=== PATIENT | male | born 1970 | race Caucasian/White ===

== ENCOUNTER 2020-02-19 19:18 | Emergency (ER) | payer OTHER, SELFPAY ==
--- NOTE | ~2020-02-19 | CT_ITS ---
EXAMINATION: CT abdomen pelvis wo con DATE: 02/19/2020 20:56 INDICATION: Left flank pain. TECHNIQUE: Computed tomography (CT) of the abdomen and pelvis was performed without intravenous contr ast. Automated exposure control and iterative reconstruction technique were employed. The dose-length product was 306.47 mGy-cm. COMPARISON: CT abdomen and pelvis 09/25/2012 FINDINGS: The visualized portions of the lung bases demonstrates mild atelectasis. No pleural effusio n. The heart size is normal. No pericardial effusion. There are cysts in the liver measuring up to 3. 0 cm. The gallbladder, spleen, pancreas, adrenal glands, and right kidney are normal. There is mild l eft hydronephrosis. There is a 2 mm stone in proximal left ureter. The prostate is mildly enlarged. T here are no dilated loops of bowel. The appendix is normal. There are no pathologically enlarged lymp h nodes. There is no free intraperitoneal fluid. There is mild thoracolumbar spondylosis. IMPRESSION: 1. 2 mm stone in proximal left ureter with mild left hydronephrosis. Reviewed, dictated and finalized at location A.
[2020-02-19 19:19] VITALS: BP 112/81; PULSE 62; RESP 16; TEMP 36; O2SAT 100
[2020-02-19 19:34] VITALS: RESP 18
--- NOTE | 2020-02-19 20:07 | ED.ABDPAIN ---
HPI - Abdominal Pain General Chief Complaint: Abdominal Pain Stated Complaint: kidney stone Time Seen by Provider: 02/19/20 19:58 Source: patient and family Mode of arrival: ambulatory History of Present Illness HPI narrative: 49 years old white male presents with left flank pain started around noon today associated with nausea and frequent vomiting. Patient denies radiation of pain. Patient had similar symptoms secondary to kidney stone. Patient denies any fever, chills, urinary symptoms. Related Data Allergies Allergy/AdvReac Type Severity Reaction Status Date / Time No Known Drug Allergies Allergy Verified 10/25/12 13:55 Review of Systems Review of Systems: Narrative: CONSTITUTIONAL: Denies fever, chills, or sweats. EYES: Denies visual changes, redness, or discharge. ENT: Denies rhinorrhea, congestion, sore throat, or otalgia. CARDIOVASCULAR: Denies chest pain, palpitations, or edema. RESPIRATORY: Denies cough or dyspnea. GASTROINTESTINAL: Denies abdominal pain, nausea, vomiting, or diarrhea. GENITOURINARY: Denies dysuria or hematuria. SKIN: Denies rash or itching. MUSCULOSKELETAL: Denies back pain, joint pain, or myalgia. NEUROLOGIC: Denies headache, numbness, or weakness. PSYCHIATRIC: Denies anxiety or depression. [facility] Family History Family History Mother Family history of diabetes mellitus in first degree relative Family history of type 2 diabetes mellitus Sibling Family history of thyroid disease Father Malignant neoplasm of prostate Social History Social History Smoking status: Never smoker Alcohol intake: current Gender identity (if verbalized by the patient): Male Exam Narrative: Exam Narrative: General appearance: Well-developed, well-nourished Skin: Normal color Head: Normocephalic, nontraumatic Eyes: Clear conjunctiva ENT: Oropharynx normal, ears normal, nose normal Neck: Supple, nontender Chest and respiratory: Airway patent, no respiratory distress, no accessory muscle use Heart: Regular rate/rhythm Abdomen: Soft, mild tenderness left flank , no organomegaly, quiet bowel sounds Vascular: Normal peripheral pulses, normal capillary refill. Musculoskeletal: Normal range of motion, nontender back Neurologic: Alert and oriented ?3, [employer] is normal as tested, no gross motor deficit Course Course Emergency Course: Improving Vital Signs Vital signs: Vital Signs Temperature 36.0 C L 02/19/20 19:19 Pulse Rate 62 02/19/20 19:19 Respiratory Rate 16 02/19/20 19:19 Blood Pressure 112/81 02/19/20 19:19 Pulse Oximetry 100 02/19/20 19:19 Temperature 36.0 C L 02/19/20 19:19 Pulse Rate 62 02/19/20 19:19 Respiratory Rate 18 02/19/20 19:34 Blood Pressure 112/81 02/19/20 19:19 Pulse Oximetry 100 02/19/20 19:19 MDM - Abdominal Pain MDM Narrative Medical decision making narrative: Kidney stone is my concern. Labs, UA, CT abdomen and pelvis to rule out kidney stone ordered. Further plan to follow Differential Diagnosis Differential diagnosis: Likely calculus of kidney and other (Pyelonephritis, constipation) Imaging Data Radiologist's impression: ITS Impressions Abdomen/Pelvis CT 02/19/20 21:01 IMPRESSION: 1. 2 mm stone in proximal left ureter with mild left hydronephrosis. Critical Care Time Critical Care Time Critical Care Time: No Discharge Plan Discharge Clinical Impression: Kidney stone Patient Disposition: Home, Self-Care Condition: Improved Instructions: Kidney Stones (ED) Additional Instructions: Return if symptoms are worsening , call your
--- NOTE | 2020-02-19 20:36 | PC.NURSE ---
Attempted to draw labs but patient stated he would like to leave. Nurse and MD notified at this time.
--- NOTE | 2020-02-19 21:10 | PC.NURSE ---
pt refused all meds, stated he just wants ct to know size. notified.
[2020-02-19 21:29] VITALS: BP 114/68; PULSE 64; RESP 18; TEMP 36.6; O2SAT 98
== END 2020-02-19 21:30 | disposition home or self-care (01) ==
PROVIDERS: Emergency Provider Emergency Medicine; PCP Internal Medicine Endocrinology, Diabetes & Metabolism
DX: N13.2 Hydronephrosis with renal and ureteral calculous obstruction (principal)
CPT/HCPCS: 74176; 99284

== ENCOUNTER 2025-01-31 19:00 | Emergency (ER) | payer BC, SELFPAY ==
[2025-01-31] VITALS (20 sets, daily range): BP systolic 128–156; BP diastolic 77–100; PULSE 64–71; RESP 15–21; TEMP 36.4–36.5; O2SAT 95–98
--- NOTE | ~2025-01-31 | XR_ITS ---
CHEST RADIOGRAPH, PA AND LATERAL CLINICAL HISTORY: CP . COMPARISON: 10/25/2013 TECHNIQUE: PA and lateral views of the chest. FINDINGS The cardiomediastinal silhouette is unremarkable. Increased interstitial markings are identified bilaterally, findings suggesting mild pulmonary vascul ar congestion. Two irregular nodules are suspected within the left upper lobe, not present on the 2013 examination f or which cross-sectional imaging (noncontrast enhanced CT examination of the chest) is recommended fo r further evaluation. Hazy opacification of the superior segment of the right lower lobe, possibly an early infiltrate. The remainder of the lungs are clear. IMPRESSION: Mild pulmonary vascular congestion, with a possible early infiltrate in the superior segment of the r ight lower lobe. Interval development of two irregular subcentimeter nodules projecting over the left upper lobe for w hich cross-sectional imaging (noncontrast enhanced CT examination of the chest) is recommended for fu rther evaluation. Reviewed, dictated and finalized at location A. IMPRESSION: Mild pulmonary vascular congestion, with a possible early infiltrate in the sup erior segment of the right lower lobe. Interval development of two irregular subcentimeter nodules projecting over the left upper lobe for which cross-sectional imaging (noncontrast enhanced CT exa mination of the chest) is recommended for further evaluation.
--- NOTE | ~2025-01-31 | CT_ITS ---
CLINICAL INDICATION: Abnormal chest x-ray COMPARISON: Radiographic evaluation of the chest performed approximately 90 minutes earlier. TECHNIQUE: Multiple contiguous axial images of the chest was performed without the administration of intravenous contrast. This CT examination was performed utilizing dose reduction techniques. DLP: mGy-cm FINDINGS/OBSERVATIONS: LUNG: The irregular subcentimeter nodule projecting over the left upper lobe on chest radiograph actually c orresponds to a bone island within the posterior left fourth rib. Trace bibasilar atelectasis. Within the superior segment of the right lower lobe are areas of dense consolidation with air broncho grams consistent with a focal infiltrate, corresponding to today's chest radiograph. Small right-sided pleural effusion is also noted. The lungs are otherwise clear. HEART: The heart is within the upper limits of normal for size, without pericardial effusion. MEDIASTINUM: No pathologically enlarged or morphologically suspicious lymph nodes are identified within the medias tinum, bilateral axilla, within the soft tissues of the anterior chest wall. SOFT TISSUES OF THE CHEST: Unremarkable. BONES OF THE CHEST: No acute fracture. No lytic or blastic lesions are identified. IMPRESSION: Infiltrate within the superior segment of the right lower lobe. Trace bibasilar atelectasis. Small right-sided pleural effusion. The remainder of the lungs are clear. Reviewed, dictated and finalized at location A.
--- NOTE | 2025-01-31 19:16 | ECG_ITS ---
Test Date: 2025-01-31 19:58:47 Measurements Intervals [place] Rate: 68 P: -15 LA: 184 QRS: 4 QRSD: 96 T: -7 QT: 387 QTc: 414 Interpretive Statements SINUS RHYTHM No previous ECG available for comparison Electronically Signed On 02-01-2025 17:09:13 CDT by Steve Winston M.D.
--- NOTE | 2025-01-31 20:04 | PC.NURSE ---
Patient taken to Xray at this time, via w/c.
--- OUTSIDE RECORDS SUMMARY | 2025-01-31 20:17 | XMS_ITS | Clinical Summary ---
Author Organization [email or web address] Address [address] [place] [address] Care Team Providers Care Fruit And Vegetable Inspector Name Role Phone Unknown, Provider Primary Care Provider Unavaila ble Source Comments [email or web address],non-owned Affiliates and Associated Physician Practices is amultiple site organization consisting of ambulatory clinics and hospital sitesin [place], [place], [place] and [place]. This disclosure is being madepursuant to the Care Everywhere program and may not contain all information available regarding this patient. Last updated 18.[email or web address] Allergies No known active allergies Medications * Be aware that medications may not be up to date on this document. Alwaysverify current medications with the patient. Omeprazole 20 MG TBDD Active Active Problems No known active problems Family History Relation Name Status Comments Brother 1 Alive Brother 2 Alive Father Alive Mother Alive Sister Alive Social History Tobacco Use Types Packs/Day Years Used Date Smoking Tobacco: Never Smokeless Tobacco: Never Alcohol Use Standard Drinks/Week Comments Yes 0 (1 standard drink = 0.6 oz pur e alcohol) Sex and Gender Information Value Date Recorded Sex Assigned at Not on file Legal Sex Male 10:37 AM [employer] Gender Identity Not on file Sexual Orientation Not on file Last Filed Vital Signs Vital Sign Reading Time Taken Comments Blood Pressure 102/70 11/09/2018 11:49 AM [employer] Pulse 96 11/09/2018 11:49 AM [employer] Temperature 36.7 C (98 F) 11/09/2018 11:49 AM [employer] Respiratory Rate 16 11/09/2018 11:49 AM MALTED [employer] Oxygen Saturation 98% 11/09/2018 11:49 AM [employer] Inhaled Oxygen Concentration - - Weight 90.7 kg (200 lb) 11/09/2018 11:49 AM [employer] Height 182.9 cm (6') 11/09/2018 11:49 AM [employer] Body Mass Index 27.12 11/09/2018 11:49 AM MALTED [employer] M[employer] Plan of Treatment Health Maintenance Due Date Last Done Comments COLOGUARD (AGES 45-75) - COL ON CA SCREENING 1969 COLON MONITORING 1969 COLONOSCOPY - COLON CA SCREENING 1969 CT COLONOGRAPHY - COLON CA SCREENING 1969 Colorectal Cancer Screening 1969 FIT - COLON CA SCREENING 1969 FLEX SIG - COLON CA SCREENING 1969 LIPID TESTING 1969 HIV SCREENING 1984 HEPATITIS C SCREENING 12/12/1987 DTAP/TDAP/TD VACCINES (1 - Tdap) 1988 HEPATITIS B VACCINE (1 of 3 - 19+ 3-dose series) 1988 SCREENING FOR DIABETES 09/12/2018 PNEUMOCOCCAL VACCINE 50+ (1 of 1 - PCV) 12/17/2019 ZOSTER VACCINE (1 of 2) 12/17/2019 COVID-19 VACCINE (1 - 2023-2 5 season) 2024 DEPRESSION SCREENING 09/11/2024 INFLUENZA VACCINE (Season Ended) 2025 HIB VACCINE Aged Out No longer eligi ble based on patient's age to complete this topic HPV VACCINE Aged Out No longer eligi ble based on patient's age to complete this topic MENINGOCOCCAL (Group B) VACC INE SHARED DECISION-MAKING Aged Out No longer eligibl e based on patient's age to complete this topic MENINGOCOCCAL GROUPS A/C/Y/W VACCINE Aged Out No longer eligible b ased on patient's age to complete [place] [id number] [facility] [place] [id number] Care Teams Fruit And Vegetable Inspector Relationship Specialty Start Date End Date Unknown, Provider PCP - General 07/29/16
[2025-01-31 20:26] LABS: Basophils Percent Auto 0.5 % (0.2-1.2); Eosinophils Absolute Auto 0.1 K/mm3 (0-0.3); Eosinophils Percent Auto 1.7 % (0-4.4); Hematocrit 45.1 % (42.0-52.0); Hemoglobin 15.6 g/dL (14.0-18.0); Immature Granulocyte Absolute 0.02 K/mm3 (0.00-0.031); Immature Granulocyte Percent A 0.2 % (0-0.5); Lymphocytes Absolute Auto 1.15 K/mm3 (0.9-3.2); Lymphocytes Percent Auto 14.2 % (18.3-44.2); Mean Corpuscular HGB Conc 34.6 g/dl (32-36); Mean Corpuscular Hemoglobin 30.2 pg (26-34); Mean Corpuscular Volume 87.2 fl (80-100); Mean Platelet Volume 9.5 fl (7.4-10.4); Monocytes Absolute Auto 0.6 K/mm3 (0.1-0.6); Monocytes Percent Auto 7.9 % (2.6-8.5); Neutrophils Absolute Auto 6.1 K/mm3 (1.3-6.7); Neutrophils Percent Auto 75.5 % (45.5-73.1); Platelet Count Result 154 k/mm3 (150-375); Red Blood Count 5.17 M/mm3 (4.6-6.20); Red Cell Distribution Width 12.3 % (11.5-14.5); White Blood Count 8.1 K/mm3 (4.5-10.0)
--- NOTE | 2025-01-31 20:28 | ED_ITS ---
HPI - Chest Pain General Chief Complaint: Shortness of Breath/Dyspnea Stated Complaint: Right side pain-diff breathing for several days Time Seen by Provider: 01/31/25 19:55 Source: patient Mode of arrival: ambulatory Limitations: no limitations History of Present Illness HPI narrative: This is a 54 year old male that presents to the ER for right sided chest pain. Ongoing intermittently for the last couple of days. Reports pain with inspiration. Denies fever, cough, abdominal pain, vomiting. Related Data Allergies Allergy/AdvReac Type Severity Reaction Status Date / Time No Known Allergies Allergy Verified 01/31/25 19:02 Review of Systems 2 Review of Systems: CONSTITUTIONAL: Denies fever CARDIOVASCULAR: Reports chest pain,. Denies edema. RESPIRATORY: Reports dyspnea. Denies cough All systems reviewed & are unremarkable except as noted in HPI and below PMFSH Family History Family History Mother Family history of diabetes mellitus in first degree relative Family history of type 2 diabetes mellitus Sibling Family history of thyroid disease Father Malignant neoplasm of prostate Social History Social History Smoking status: Never smoker Alcohol intake: current Gender identity (if verbalized by the patient): Male Exam 2 Narrative: GENERAL: Well-appearing, well-nourished, and in no acute distress. HEAD: Normocephalic, atraumatic. EYES: EOMI. ENT: Nares clear, no rhinorrhea or epistaxis. Mucous membranes moist. Oropharynx without tonsillar hypertrophy exudate or other lesions. NECK: Supple. No adenopathy or masses. CHEST: Clear to auscultation. No respiratory distress. No wheezes rales or rhonchi HEART: Regular rate and rhythm. No murmur heard. Normal peripheral pulses. ABDOMEN: Soft, nontender, nondistended, normal active bowel sounds. EXTREMITIES: Normal range of motion. No edema. SKIN: Warm, dry, no rash. NEURO: No focal deficits. Alert and oriented x3. PSYCH: Normal mood and affect Course Course Emergency Course: Patient updated on his workup and agrees with plan of care Vital Signs Vital signs: Vital Signs Temperature 97.6 F 01/31/25 19:05 Pulse Rate 69 01/31/25 19:05 Respiratory Rate 18 01/31/25 19:05 Blood Pressure 128/100 H 01/31/25 19:05 Pulse Oximetry 98 01/31/25 19:05 Oxygen Delivery Room Air 01/31/25 19:05 Temperature 97.7 F 01/31/25 23:14 Pulse Rate 68 01/31/25 23:14 Respiratory Rate 17 01/31/25 23:14 Blood Pressure 142/89 H 01/31/25 23:14 Pulse Oximetry 97 01/31/25 23:14 Oxygen Delivery Room Air 01/31/25 20:02 MDM - Chest Pain MDM Narrative Medical decision making narrative: Patient presents the emergency department for right-sided chest pain. Ongoing over the last couple of days. He is afebrile and nontoxic appearing. His vitals are stable. Cbc without leukocytosis. Metabolic panel without concerning findings. D-dimer not elevated. EKG without acute ST changes and baseline troponin is negative. Chest x-ray shows possible infiltrate in the right lower lobe. Possible left pulmonary nodules. Recommend CT scan. CT shows infiltrate in the superior segment of the right lower lobe. Trace bibasilar atelectasis. Small right-sided pleural effusion. Patient updated on his workup and agrees with plan of care. Will be started on oral antibiotics, instructed to follow-up with his primary provider. He was given warnings to return to the ER Differential Diagnosis Differential diagnosis: Likely stable angina, atypical chest pain, costochondritis and other (PE, pneumonia) Lab Data Attestation: I reviewed the patient's lab results. 01/31/25 20:19 01/31/25 20:19 Labs: Lab Results 01/31/25 Range/Units 20:19 WBC 8.1 (4.5-10.0) K/mm3 RBC 5.17 (4.6-6.20) M/mm3 Hgb 15.6 (14.0-18.0) g/dL Hct 45.1 (42.0-52.0) % MCV 87.2 (80-100) fl MCH 30.2 (26-34) pg MCHC 34.6 (32-36) g/dl RDW 12.3 (11.5-14.5) % Plt Count 154 (150-375) k/mm3 MPV 9.5 (7.4-10.4) fl Immature Gran % (Auto) 0.2 (0-0.5) % Neut % (Auto) 75.5 H (45.5-73.1) % Lymph % (Auto) 14.2 L (18.3-44.2) % [place] % (Auto) 7.9 (2.6-8.5) % Eos % (Auto) 1.7 (0-4.4) % Baso % (Auto) 0.5 (0.2-1.2) % Lymph # (Auto) 1.15 (0.9-3.2) K/mm3 [place] # (Auto) 0.6 (0.1-0.6) K/mm3 Eos # (Auto) 0.1 (0-0.3) K/mm3 Baso # (Auto) 0.0 (0.0-0.1) K/mm3 Abs Immat Gran (auto) 0.02 (0.00-0.031) K/mm3 Absolute Neuts (auto) 6.1 (1.3-6.7) K/mm3 Absolute Nucleated RBC 0.000 (0.0-0.012) K/mm3 Nucleated RBC % 0.0 (0.0-0.2) % PT 12.9 (11.1-14.7) Seconds INR 0.9 APTT 28.9 (22.3-36.8) Seconds D-Dimer 0.35 (<0.48) ug/mL Sodium 138 (137-145) mmol/L Potassium 4.1 (3.4-5.0) mmol/L Chloride 104 (98-107) mmol/L Carbon Dioxide 27 (22-30) mmol/L Anion Gap 7 (4-12) mmol/L BUN 19 (9-20) mg/dL Creatinine 0.79 (0.7-1.3) mg/dL Estim Creat Clear Calc 101 ml/min Estimated GFR > 60 (59 - ) Glucose 98 (65-110) mg/dL Calcium 8.9 (8.4-10.2) mg/dL Total Bilirubin 0.7 (0.2-1.3) mg/dL AST 34 (17-59) U/L ALT 24 (6-50) U/L Alkaline Phosphatase 76 (38-126) U/L Troponin I < 0.012 (0.000-0.034) ng/mL NT-Pro-B Natriuret Pep < 20 (19.9-100) pg/mL Total Protein 7.0 (6.3-8.2) g/dL Albumin 4.3 (3.5-5.1) g/dL Lipase 88 (23-300) U/L Imaging Data Radiologist's impression: ITS Impressions Chest X-Ray 01/31/25 20:29 IMPRESSION: Mild pulmonary vascular congestion, with a possible early infiltrate in the superior segment of the right lower lobe. Interval development of two irregular subcentimeter nodules projecting over the left upper lobe for which cross-sectional imaging (noncontrast enhanced CT examination of the chest) is recommended for further evaluation. Chest CT 01/31/25 22:19 IMPRESSION: Infiltrate within the superior segment of the right lower lobe. Trace bibasilar atelectasis. Small right-sided pleural effusion. The remainder of the lungs are clear. ECG Data EKG #1: ECG completion date: 01/31/25 EKG Interpretation: normal rate, sinus rhythm, no ST changes and normal QT Critical Care Time Critical Care Time Critical Care Time: No Discharge Plan Discharge Clinical Impression: Pneumonia Qualifiers: Pneumonia type: due to unspecified organism Laterality: right Lung location: l ower lobe of lung Qualified Code(s): J18.9 - Pneumonia, unspecified organism Patient Disposition: Home Condition: Stable Instructions: Antibiotic Form, Community Acquired Pneumonia (ED) Additional Instructions: Return to the emergency department if you experience fever, worsening chest pain, shortness of breath, or any other symptoms that are concerning to you. Take oral antibiotics as prescribed Follow up with your primary care doctor Patient Language: Faroese Prescriptions: New amoxicillin-pot clavulanate 875-125 mg tablet 1 tablet PO Q12H 5 Days Qty: 10 0RF azithromycin 250 mg tablet See Rx Instructions .ROUTE .COMPLEX Qty: 6 0RF Rx Instructions: For 250 mg dose pack: take 500 mg today (day 1), then 250 mg for 4 days (days 2-5) No Action tamsulosin [Flomax] 0.4 mg capsule 0.4 mg PO DAILY Qty: 10 0RF oxycodone-acetaminophen [Percocet] 7.5-325 mg tablet 1 tablet PO Q6H PRN (Reason: pain) Qty: 14 0RF ondansetron HCl [Zofran] 4 mg tablet 4 mg PO Q6H PRN (Reason: nausea and vomiting) Qty: 10 0RF Follow-up/Referrals: PHYSICIAN NOT ON STAFF,NONSTAFF [Primary Care Provider] -
[2025-01-31 20:39] LABS: INR 0.9; Prothrombin Time 12.9 Seconds (11.1-14.7)
[2025-01-31 20:40] LABS: Partial Thromboplastin Time 28.9 Seconds (22.3-36.8)
[2025-01-31 20:41] LABS: Alanine Aminotransferase 24 U/L (6-50); Albumin Level 4.3 g/dL (3.5-5.1); Alkaline Phosphatase 76 U/L (38-126); Anion Gap 7 mmol/L (4-12); Aspartate Amino Transferase 34 U/L (17-59); Bilirubin,Total 0.7 mg/dL (0.2-1.3); Blood Urea Nitrogen 19 mg/dL (9-20); Calcium 8.9 mg/dL (8.4-10.2); Carbon Dioxide 27 mmol/L (22-30); Chloride 104 mmol/L (98-107); Estimated CRCL calculation 101 ml/min; Estimated Glomerular Filt Rate > 60; Glucose 98 mg/dL (65-110); Lipase 88 U/L (23-300); Potassium 4.1 mmol/L (3.4-5.0); Sodium 138 mmol/L (137-145)
[2025-01-31 20:53] LABS: Troponin I < 0.012 ng/mL (0.000-0.034)
[2025-01-31 21:11] LABS: D Dimer 0.35 ug/mL (<0.48)
[2025-01-31 21:20] LABS: NT Pro B Type Natriuretic Pept < 20 pg/mL (19.9-100)
--- NOTE | 2025-01-31 22:45 | PC.NURSE ---
Patients SO comes to nurses station and states she requests to speak to PA. PA notified.
== END 2025-01-31 23:16 | disposition home or self-care (01) ==
PROVIDERS: Emergency Provider Physician Assistant
DX: J18.9 Pneumonia, unspecified organism (principal); R91.8 Other nonspecific abnormal finding of lung field
CPT/HCPCS: 36415; 71046; 71250; 80053; 83690; 83880; 84484; 85025; 85380; 85610; 85730; 93005; 99284